=== PATIENT | female | born 1985 | race Caucasian/White ===

== ENCOUNTER 2024-09-09 19:59 | Observation (INO) | payer MEDICARE, OTHER ==
[2024-09-09 20:06] LABS: Glucose,Whole Blood 237 mg/dL (70-110)
--- NOTE | 2024-09-09 20:21 | ED ---
General Adult HPI - General Chief complaint: Chest Pain Stated complaint: Chest pain Time Seen by Provider: 09/09/24 20:02 Source: EMS Mode of arrival: EMS Limitations: physical limitation - History of Present Illness Initial comments: Patient is a 39-year-old female past medical history of diabetes, prior PE, bilateral BKA, polysubstance abuse, presenting today for multiple complaints chief of which is chest pain. Patient was recently released from shelter where she had been for 4 months for possession of heroin. She was checking into [facility] facility when she got experiencing left-sided pressure-like chest pain that radiated to her left shoulder blade. Denies difficulty in breathing. No history of CAD or CVA however patient's father had a heart attack at the age of 56. Patient denies associated nausea, vomiting, diaphoresis or shortness of breath. No recent fevers or chills. Endorses associated pressure-like headache rated a 7 out of 10. No slurred speech, focal numbness or weakness though does endorse tingling in her hands. Patient was given 324 mg of aspirin prior to arrival without relief. Patient states she was previously on Xarelto. Currently denies hemoptysis, lower extremity swelling. No history malignancy. Is not on hormone replacement therapy., Does not smoke cigarettes. Also endorses dysuria and urinary frequency. Denies hematuria. Pt also endorses SI. Denies plan. Prior attempt via OD last November. Denies HI. Denies auditory/visual hallucinations. Has been off of medications x 4 months. - Related Data Allergies Allergy/AdvReac Type Severity Reaction Status Date / Time No Known Allergies Allergy Verified 09/09/24 21:17 Review of Systems ROS Statement: Those systems with pertinent positive or pertinent negative responses have been documented in the HPI. ROS Other: All systems not noted in ROS Statement are negative. Past Medical History Past Medical History: Diabetes Mellitus, Pulmonary Embolus (PE) History of Any Multi-Drug Resistant Organisms: None Reported Past Surgical History: Appendectomy Additional Past Surgical History / Comment(s): Bilat below the knee amputations Past Psychological History: Anxiety, Bipolar, Depression, Panic Disorder, PTSD Smoking Status: Former smoker Past Alcohol Use History: Daily Past Drug Use History: Cocaine, Heroin, Methamphetamine General Exam - General Exam Comments Initial Comments: PE: CONSTITUTIONAL: No apparent distress, well appearing SKIN: Warm, dry, no jaundice, hives or petechiae EYES: Pupils are equally round, extraocular movements intact without nystagmus, clear conjunctiva, non-icteric sclera HENT: Normocephalic, atraumatic, moist mucus membranes, oropharynx clear without exudates NECK: , Full range of motion, normal appearance PULMONARY: Clear to auscultation without wheezes, rhonchi, or rales, normal excursion, no accessory muscle use and no stridor CARDIOVASCULAR: Regular rate, rhythm, normal S1 and S2. No appreciated murmurs, rubs or gallops. Strong radial pulses with intact distal perfusion. No lower extremity edema GASTROINTESTINAL: Soft, active bowel sounds throughout, non-tender, non- distended, no palpable masses, no rebound or guarding. No hepatosplenomegaly MUSCULOSKELETAL: Extremities have no gross deformity, no edema, redness, or swelling. Bilateral BKA. NEUROLOGIC:_a/o x 3, GCS 15, normal mentation and speech. Moves all extremities x 4 without motor or sensory deficit, no focal neurologic deficit PSYCHIATRIC:_normal mood and affect, thought process is clear and linear Limitations: physical limitation Course Vital Signs 09/09/24 09/09/24 20:03 22:55 Temperature 98.7 F Pulse Rate 99 112 H Respiratory 18 18 Rate Blood Pressure 127/91 126/90 O2 Sat by Pulse 100 100 Oximetry EKG Findings - EKG Comments: EKG Findings:: Sinus rhythm, rate 99 bpm, intervals within acceptable limits, normal axis, no significant ST ovation's or depressions, no arrhythmia, T wave inversion lead III aVF Medical Decision Making - Medical Decision Making Was pt. sent in by a medical professional or institution (, PA, COLLET MAKING MACHINE OPERATOR, urgent care, hospital, or [facility]...) When possible be specific @ -Patient sent over from [facility] Did you speak to anyone other than the patient for history (EMS, parent, family, police, friend...)? What history was obtained from this source @ -No Did you review nursing and triage notes (agree or disagree)? Why? @ -I reviewed nursing and triage notes Were old charts reviewed (outside hosp., previous admission, EMS record, old EKG, old radiological studies, urgent care reports/EKG's, [facility] records)? Report findings @ -Medical records reviewed no prior records available for review Differential Diagnosis (chest pain, altered mental status, abdominal pain women, abdominal pain men, vaginal bleeding, weakness, fever, dyspnea, syncope, headache, dizziness, GI bleed, back pain, seizure, CVA, palpatations, mental health, musculoskeletal)? @ -Differential Chest Pain: Stable Angina, Unstable Angina, STEMI, NSTEMI Aortic Dissection, pericarditis, pleurisy, chostochondirits, Pneumothorax, Musculoskeletal, Esophageal Spasm GERD, Cholecystitis, Pancreatitis, Zoster, this is not meant to be an all- inclusive list. EKG interpreted by me (3pts min.). @ -As above X-rays interpreted by me (1pt min.). @ -None done CT interpreted by me (1pt min.). @Personally reviewed CT PE study I see no evidence of massive or submassive PE U/S interpreted by me (1pt. min.). @ -None done What testing was considered but not performed or refused? (CT, X-rays, U/S, l abs)? Why? @CT brain was considered however patient had already received CTA chest and therefore CT brain would need to occur 6 to 8 hours afterwards due to contrast ministration, patient has no focal neurologic deficits, she is well-appearing, she is not significantly hypertensive, at this point I have a very low suspicion from SAH and feel it is safe to wait until contrast from CTA is cleared before obtaining CT brain. CT brain ordered for morning to ensure no mass occupying lesion that would cause new headaches What meds were considered but not given or refused? Why? @ -None Did you discuss the management of the patient with other professionals (professionals i.e. , PA, COLLET MAKING MACHINE OPERATOR, lab, RT, psych nurse, social work nurse, junior staff accountant, teacher, enforcement safety officer, caser in)? Give summary @ -No Was smoking cessation discussed for >3mins.? @ -No Was critical care preformed (if so, how long)? @ -No Were there social determinants of health that impacted care today? How? (Homelessness, low income, unemployed, alcoholism, drug addiction, transportation, low edu. Level, literacy, decrease access to med. care, shelter, rehab)? @Recently incarcerated Was there de-escalation of care discussed even if they declined (Discuss DNR or withdrawal of care, Hospice)? @ -No What co-morbidities impacted this encounter? (DM, HTN, Smoking, COPD, CAD, Cancer, CVA, ARF, Chemo, Hep., AIDS, mental health diagnosis, sleep apnea, morbid obesity)? @Diabetes, prior PE, substance abuse Was patient admitted / discharged? Hospital course, mention meds given and route, prescriptions, significant lab abnormalities, going to OR and other pertinent info. @[id number]old female, history of diabetes, polysubstance abuse, recently incarcerated presenting for chest pain. Vital signs stable on arrival. On my assessment she appears older than her stated age but is otherwise well- appearing. Bilateral BKA. Reassuring cardiopulmonary exam. No focal neurologic deficits. EKG shows T wave inversion III and avf. Will obtain CTA due to prior PE and not on anticoagulation, cardiac enzymes, lipase, CBC, CMP, UA-pt incidentally notes dysuruia and frequency. Pain medications ordered. Labs reviewed. Grossly within normal limits. Abnormal values not concerning for acute pathology related to presenting complaint. CT showed no large vessel PE however unable to evaluate for segmental or subsegmental. Patient is not hypoxic, no elevated cardiac enzymes to indicate right heart strain. Will restart patient on her Xarelto. On reassessment pt endorsed improvement of pain. HEART score 4. Will admit for observation. Case discussed with Dr. Martinez who kindly accepted pt for admission . Undiagnosed new problem with uncertain prognosis? @ -No Drug Therapy requiring intensive monitoring for toxicity (Heparin, Nitro, Insulin, Cardizem)? @ -No Were any procedures done? @ -No Diagnosis/symptom? @chest pain Acute, or Chronic, or Acute on Chronic? @ -acute Uncomplicated (without systemic symptoms) or Complicated (systemic symptoms)? @ complicated Side effects of treatment? @ -No Exacerbation, Progression, or Severe Exacerbation? @ -No Poses a threat to life or bodily function? How? (Chest pain, USA, NH, pneumonia, PE, COPD, DKA, ARF, appy, cholecystitis, CVA, Diverticulitis, Homicidal, Suicidal, threat to staff... and all critical care pts) @ possibly - Lab Data Result diagrams: 09/09/24 20:30 09/09/24 20:30 Lab Results 09/09/24 09/09/24 09/09/24 Range/Units 20:04 20:30 20:30 WBC 13.46 H (4.50-10.00) 10*3/uL RBC 4.62 (4.10-5.20) 10*6/uL Hgb 11.8 L (12.0-15.0) g/dL Hct 36.6 L (37.2-46.3) % MCV 79.2 L (80.0-97.0) fL MCH 25.5 L (27.0-32.0) pg MCHC 32.2 (32.0-37.0) g/dL Plt Count 362 (140-440) 10*3/uL MPV 9.9 (9.5-12.2) fL Immature Gran % (Auto) 0.3 % Neutrophils % 67.3 % Lymphocytes % 22.7 % Monocytes % 7.4 % Eosinophils % 1.6 % Basophils % 0.7 % Immature Gran # 0.04 (0.00-0.04) 10*3/uL Neutrophils # 9.06 H (1.80-7.70) 10*3/uL Lymphocytes # 3.05 (0.90-5.00) 10*3/uL Monocytes # 0.99 (0.20-1.00) 10*3/uL Eosinophils # 0.22 (0.04-0.35) 10*3/uL Basophils # 0.10 (0.00-0.10) 10*3/uL PT 10.5 (10.0-12.5) sec INR 0.9 (<1.2) APTT 26.0 (22.0-30.0) sec Sodium (137-145) mmol/L Potassium (3.5-5.1) mmol/L Chloride (98-107) mmol/L Carbon Dioxide (22-30) mmol/L Anion Gap mmol/L BUN (7-17) mg/dL Creatinine (0.52-1.04) mg/dL Est GFR (CKD-EPI)AfAm (>60 ml/min/1.73 sqM) Est GFR (CKD-EPI)NonAf (>60 ml/min/1.73 sqM) Glucose (74-99) mg/dL POC Glucose (mg/dL) 237 H (70-110) mg/dL POC Glu Expediter Clerk ID Thanh Muranda Calcium (8.4-10.2) mg/dL Magnesium (1.6-2.3) mg/dL Total Bilirubin (0.2-1.3) mg/dL AST (14-36) U/L ALT (4-34) U/L Alkaline Phosphatase (38-126) U/L Troponin I (0.000-0.034) ng/mL NT-Pro-B Natriuret Pep pg/mL Total Protein (6.3-8.2) g/dL Albumin (3.5-5.0) g/dL Lipase (23-300) U/L Urine Color Urine Appearance (Clear) Urine pH (5.0-8.0) Ur Specific Ney (1.001-1.035) Urine Protein (Negative) Urine Glucose (UA) (Negative) Urine Ketones (Negative) Urine Blood (Negative) Urine Nitrite (Negative) Urine Bilirubin (Negative) Urine Urobilinogen (<2.0) mg/dL Ur Leukocyte Esterase (Negative) Urine RBC (0-5) /hpf Urine WBC (0-5) /hpf Ur Squamous Epith Cells (0-4) /hpf Urine Bacteria (None) /hpf Urine Mucus (None) /hpf Urine HCG, Qual (Not Detectd) 09/09/24 09/09/24 09/09/24 Range/Units 20:30 20:30 21:17 WBC (4.50-10.00) 10*3/uL RBC (4.10-5.20) 10*6/uL Hgb (12.0-15.0) g/dL Hct (37.2-46.3) % MCV (80.0-97.0) fL MCH (27.0-32.0) pg MCHC (32.0-37.0) g/dL Plt Count (140-440) 10*3/uL MPV (9.5-12.2) fL Immature Gran % (Auto) % Neutrophils % % Lymphocytes % % Monocytes % % Eosinophils % % Basophils % % Immature Gran # (0.00-0.04) 10*3/uL Neutrophils # (1.80-7.70) 10*3/uL Lymphocytes # (0.90-5.00) 10*3/uL Monocytes # (0.20-1.00) 10*3/uL Eosinophils # (0.04-0.35) 10*3/uL Basophils # (0.00-0.10) 10*3/uL PT (10.0-12.5) sec INR (<1.2) APTT (22.0-30.0) sec Sodium 136 L (137-145) mmol/L Potassium 4.4 (3.5-5.1) mmol/L Chloride 101 (98-107) mmol/L Carbon Dioxide 23 (22-30) mmol/L Anion Gap 12 mmol/L BUN 18 H (7-17) mg/dL Creatinine 0.67 (0.52-1.04) mg/dL Est GFR (CKD-EPI)AfAm >90 (>60 ml/min/1.73 sqM) Est GFR (CKD-EPI)NonAf >90 (>60 ml/min/1.73 sqM) Glucose 216 H (74-99) mg/dL POC Glucose (mg/dL) (70-110) mg/dL POC Glu Expediter Clerk ID Calcium 9.7 (8.4-10.2) mg/dL Magnesium 2.0 (1.6-2.3) mg/dL Total Bilirubin 0.2 (0.2-1.3) mg/dL AST 20 (14-36) U/L ALT 12 (4-34) U/L Alkaline Phosphatase 84 (38-126) U/L Troponin I <0.012 (0.000-0.034) ng/mL NT-Pro-B Natriuret Pep <20 pg/mL Total Protein 7.4 (6.3-8.2) g/dL Albumin 4.1 (3.5-5.0) g/dL Lipase 140 (23-300) U/L Urine Color Colorless Urine Appearance Cloudy H (Clear) Urine pH 5.5 (5.0-8.0) Ur Specific Ney 1.022 (1.001-1.035) Urine Protein Negative (Negative) Urine Glucose (UA) Negative (Negative) Urine Ketones Negative (Negative) Urine Blood Negative (Negative) Urine Nitrite Negative (Negative) Urine Bilirubin Negative (Negative) Urine Urobilinogen <2.0 (<2.0) mg/dL Ur Leukocyte Esterase Large H (Negative) Urine RBC 48 H (0-5) /hpf Urine WBC 102 H (0-5) /hpf Ur Squamous Epith Cells 2 (0-4) /hpf Urine Bacteria Rare H (None) /hpf Urine Mucus Rare H (None) /hpf Urine HCG, Qual (Not Detectd) 09/09/24 Range/Units 21:17 WBC (4.50-10.00) 10*3/uL RBC (4.10-5.20) 10*6/uL Hgb (12.0-15.0) g/dL Hct (37.2-46.3) % MCV (80.0-97.0) fL MCH (27.0-32.0) pg MCHC (32.0-37.0) g/dL Plt Count (140-440) 10*3/uL MPV (9.5-12.2) fL Immature Gran % (Auto) % Neutrophils % % Lymphocytes % % Monocytes % % Eosinophils % % Basophils % % Immature Gran # (0.00-0.04) 10*3/uL Neutrophils # (1.80-7.70) 10*3/uL Lymphocytes # (0.90-5.00) 10*3/uL Monocytes # (0.20-1.00) 10*3/uL Eosinophils # (0.04-0.35) 10*3/uL Basophils # (0.00-0.10) 10*3/uL PT (10.0-12.5) sec INR (<1.2) APTT (22.0-30.0) sec Sodium (137-145) mmol/L Potassium (3.5-5.1) mmol/L Chloride (98-107) mmol/L Carbon Dioxide (22-30) mmol/L Anion Gap mmol/L BUN (7-17) mg/dL Creatinine (0.52-1.04) mg/dL Est GFR (CKD-EPI)AfAm (>60 ml/min/1.73 sqM) Est GFR (CKD-EPI)NonAf (>60 ml/min/1.73 sqM) Glucose (74-99) mg/dL POC Glucose (mg/dL) (70-110) mg/dL POC Glu Expediter Clerk ID Calcium (8.4-10.2) mg/dL Magnesium (1.6-2.3) mg/dL Total Bilirubin (0.2-1.3) mg/dL AST (14-36) U/L ALT (4-34) U/L Alkaline Phosphatase (38-126) U/L Troponin I (0.000-0.034) ng/mL NT-Pro-B Natriuret Pep pg/mL Total Protein (6.3-8.2) g/dL Albumin (3.5-5.0) g/dL Lipase (23-300) U/L Urine Color Urine Appearance (Clear) Urine pH (5.0-8.0) Ur Specific Ney (1.001-1.035) Urine Protein (Negative) Urine Glucose (UA) (Negative) Urine Ketones (Negative) Urine Blood (Negative) Urine Nitrite (Negative) Urine Bilirubin (Negative) Urine Urobilinogen (<2.0) mg/dL Ur Leukocyte Esterase (Negative) Urine RBC (0-5) /hpf Urine WBC (0-5) /hpf Ur Squamous Epith Cells (0-4) /hpf Urine Bacteria (None) /hpf Urine Mucus (None) /hpf Urine HCG, Qual Not Detected (Not Detectd) Disposition Clinical Impression: Chest pain, Headache Disposition: ADMITTED IP TO THIS [facility] Condition: Stable
[2024-09-09 20:34] LABS: Basophils # (A) 0.10 10*3/uL (0.00-0.10); Basophils % (A) 0.7 %; Eosinophils # (A) 0.22 10*3/uL (0.04-0.35); Eosinophils % (A) 1.6 %; HCT 36.6 % (37.2-46.3); HGB 11.8 g/dL (12.0-15.0); Lymphocytes # (A) 3.05 10*3/uL (0.90-5.00); Lymphocytes % (A) 22.7 %; MCH 25.5 pg (27.0-32.0); MCHC 32.2 g/dL (32.0-37.0); MCV 79.2 fL (80.0-97.0); Monocytes # (A) 0.99 10*3/uL (0.20-1.00); Monocytes % (A) 7.4 %; Neutrophils # (A) 9.06 10*3/uL (1.80-7.70); Neutrophils % (A) 67.3 %; Platelet Count 362 10*3/uL (140-440); RBC 4.62 10*6/uL (4.10-5.20); RDW 21.8 % (11.5-14.5); WBC 13.46 10*3/uL (4.50-10.00)
[2024-09-09 20:46] LABS: ALT 12 U/L (4-34); AST 20 U/L (14-36); African American GFR (CKD) >90 (>60 ml/min/1.73 sqM); Albumin 4.1 g/dL (3.5-5.0); Alkaline Phosphatase 84 U/L (38-126); Anion Gap 12 mmol/L; Blood Urea Nitrogen 18 mg/dL (7-17); Calcium 9.7 mg/dL (8.4-10.2); Carbon Dioxide 23 mmol/L (22-30); Chloride 101 mmol/L (98-107); Glucose 216 mg/dL (74-99); Lipase 140 U/L (23-300); Magnesium 2.0 mg/dL (1.6-2.3); Non-African American GFR(CKD) >90 (>60 ml/min/1.73 sqM); Potassium 4.4 mmol/L (3.5-5.1); Sodium 136 mmol/L (137-145); Total Protein 7.4 g/dL (6.3-8.2)
[2024-09-09 20:55] LABS: NT-Pro-B-Type Natriuretic Pept <20 pg/mL
[2024-09-09 20:56] LABS: INR 0.9 (<1.2); Partial Thromboplastin Time 26.0 sec (22.0-30.0); Prothrombin Time 10.5 sec (10.0-12.5)
[2024-09-09] MEDS: ASPIRIN 81 MG PO STA (21:17)
[2024-09-09] MEDS: SODIUM CHLORIDE 0.9% 1,000 ML IV STA (21:20)
[2024-09-09] MEDS: ACETAMINOPHEN TAB 500 MG TAB PO STA (21:28)
[2024-09-09 21:29] LABS: Bacteria,Urine Rare /hpf; Bilirubin,Urine Negative (Negative); Blood,Urine Negative (Negative); Color,Urine Colorless; Glucose,Urine (UA) Negative (Negative); Ketones,Urine Negative (Negative); Leukocyte Esterase,Urine Large (Negative); Mucus,Urine Rare /hpf; Nitrite,Urine Negative (Negative); PH, Urine 5.5 (5.0-8.0); Protein,Urine Negative (Negative); RBC,Urine 48 /hpf (0-5); Specific Gravity,Urine 1.022 (1.001-1.035); Squamous Epithelial Cell,Urine 2 /hpf (0-4); Urobilinogen,Urine <2.0 mg/dL (<2.0); WBC,Urine 102 /hpf (0-5)
[2024-09-09] MEDS: MORPHINE SULFATE 4 MG/ML SYRINGE IVP STA (21:29)
[2024-09-09] MEDS: ONDANSETRON 4 MG/2 ML VIAL IVP STA (21:29)
[2024-09-09] MEDS: KETOROLAC 15 MG/ML 1 ML VIAL IVP STA (21:29)
--- NOTE | 2024-09-09 21:32 | CT ---
EXAMINATION TYPE: CT chest angio for PE DATE OF EXAM: 09/09/2024 9:12 PM COMPARISON: None CLINICAL INDICATION: Female, 39 years old with history of CP, prior PE; CHEST PAIN, PRIOR PE TECHNIQUE/CONTRAST: CTA scan of the thorax is performed with IV Contrast, patient injected with 100ML mL of Isovue 370, M IP images are created and reviewed these are created on a separate workstation.. CT DLP: 811.9 mGycm, Automated exposure control for dose reduction was used. FINDINGS: Lungs/Pleura: No evidence of focal consolidation, pleural effusion or pneumothorax. Airway: Large airways are patent. Heart: Size within normal limits. No significant coronary artery calcifications. Vasculature: Limited evaluation due to bolus timing, no evidence for central pulmonary embolus. The lobar, segmental and subsegmental branches are limited due to bolus timing. The pulmonary artery is o f normal size. Mediastinum: No gross evidence of adenopathy. Musculoskeletal: No acute osseous abnormalities Soft Tissues/lymph nodes: Unremarkable. Lower neck: No significant findings. Upper Abdomen: No significant findings. IMPRESSION: 1. No evidence of central pulmonary embolism. Limited evaluation of the segmental and subsegmental br anches. 2. No acute process. [facility], , 09/09/2024 9:30 PM
[2024-09-09] MEDS ORDERED: ONDANSETRON 4 MG/2 ML VIAL IVP PRN (22:22)
[2024-09-09] MEDS ORDERED: NALOXONE 0.4 MG/ML 1 ML VIAL IV PRN (22:22)
[2024-09-09] MEDS ORDERED: ACETAMINOPHEN TAB 325 MG TAB PO PRN (22:22)
[2024-09-10] MEDS: MORPHINE SULFATE 4 MG/ML SYRINGE IV PRN (02:51)
--- NOTE | 2024-09-10 07:15 | CT ---
EXAMINATION TYPE: CT brain wo con DATE OF EXAM: 09/10/2024 6:08 AM COMPARISON: None. CLINICAL INDICATION: Female, 39 years old with history of new onset headache, TECHNIQUE: Brain: Axial CT images of the brain were obtained with coronal and sagittal reformats created and rev iewed. Contrast used: None. Oral contrast used: None. CT DLP: 1215 mGycm, Automated exposure control for dose reduction was used. FINDINGS: Brain: Extra-axial spaces: No abnormal extra-axial fluid collections. Ventricular system: Within normal limits Cerebral parenchyma: No acute intraparenchymal hemorrhage or mass effect. The dorantes-white junction is well differentiated. Cerebellum: Unremarkable. Mass effect: No evidence of midline shift. Intracranial vasculature: unremarkable Soft tissues: Normal. Calvarium/osseous structures: No depressed skull fracture. Paranasal sinuses and mastoid air cells: Mild scattered paranasal sinus disease. Visualized orbits: Orbital contents are intact. IMPRESSION: No acute intracranial process. [facility], , 09/10/2024 7:13 AM
[2024-09-10] MEDS: HYDROcodone/APAP 5-325MG 1 EACH TAB PO PRN (07:41)
[2024-09-10] MEDS: FAMOTIDINE 20 MG TAB PO SCH (07:42)
[2024-09-10] MEDS ORDERED: CAFFEINE CITRATE 60 MG/3 ML VIAL IV PRN (08:25)
[2024-09-10] MEDS ORDERED: REGADENOSON 0.4 MG/5 ML SYRINGE IV PRN (08:25)
[2024-09-10] MEDS ORDERED: AMINOPHYLLINE 500 MG/20 ML VIAL IV PRN (08:25)
[2024-09-10] MEDS: RIVAROXABAN 15 MG TAB PO SCH (11:48)
--- NOTE | 2024-09-10 11:58 | CA ---
Lexiscan Nuclear Stress Test Report Name: Dede Priest Exam Date: 09/10/2024 10:38 Exam Location: [facility] Ht (in): 69 Wt (lb): 200 BSA: 2.07 Ordering Phys: Tory Blanton Referring Phys: TORY BLANTON,, Technologist: MARTINA,, Age: 39 Gender: F : 1985 Procedure CPT: Indications: Reflex order-Stress test ICD-10 Codes: Patient History: Chest pain, Diabetes and family history of heart disease. Medications: SEE CHART,,,,, Meds past 24 hrs: Pretest Chest Pain: STRESS TEST Lexiscan Protocol Exercise Duration (min:sec): 02:[address] Depressions (mm): Angina Score: Espinal Score: Resting HR (bpm): 80 Peak HR (bpm): 111 Resting BP (mmHg): 128 / 65 Peak BP (mmHg): 109 / 63 MPHR: 182 Target HR: 155 % MPHR: 61 METS: 1.0 Total Dose: Peak Dose: Atropine: Double Product: 92176 BP Response: Stress Termination: INFUSION COMPLETE Stress Symptoms: NO SYMPTOMS Stress Summary: ECG ANALYSIS Resting ECG: Stress ECG: CONCLUSIONS Nondiagnostic stress test Dr. Navneet Leigh MD (Electronically Signed) Final Date: 10 September 2024 11:58
--- NOTE | 2024-09-10 12:13 | NM ---
EXAMINATION TYPE: NM stress lexiscan cardiolite DATE OF EXAM: 09/10/2024 COMPARISON: NONE CLINICAL INDICATION: Female, 39 years old with history of chest pain TECHNIQUE: After the intravenous administration of 10.3 mCi Tc 99m Sestamibi - Cardiolite resting SP ECT images acquired 60 minutes post injection. The patient received 0.4mg Lexiscan, 25.3 mCi Tc 99m Sestamibi - Stress images obtained [address] injection FINDINGS: Review of stress and rest SPECT images demonstrates a small fixed perfusion defect involving the mid anterior wall. Otherwise, no distinct perfusion abnormality is seen. Gated analysis shows normal wal l motion with an estimated left ventricular ejection fraction of 52 %. Though the overall squeeze nicolas ears visually normal. TID calculated upper limits of normal at 1.13. IMPRESSION: 1. A small fixed perfusion defect involving the mid anterior wall is favored to represent attenuation artifact but may also be seen with old infarct. Clinically correlate. 2. No scintigraphic evidence for inducible ischemia. 3. While the LVEF is calculated borderline at 52%, visually, it appears normal. [facility], , 09/10/2024 12:11 PM
--- NOTE | 2024-09-10 12:17 | P.CRDCN ---
History of Present Illness History of present illness: HISTORY OF PRESENT ILLNESS: This is a 39-year-old female with a past medical history significant for diabetes, pulmonary embolism, bilateral BKA, former nicotine dependence, and heroin use. Patient does not follow with a budget technician. We have been asked to see the patient in consultation for chest pain. Patient examined at the bedside. Patient states she was just [facility] from [facility] after serving 4 months. She states that she went to check herself into [facility] for rehab when she started experiencing chest discomfort. She states the pain was in the middle of her chest and radiated into her left arm. She reports it felt like an elephant sitting on her chest. She also reports having a headache. She is a former cigarette smoker. She does report a history of pulmonary embolism and usually is on Xarelto. However she states while she was in [facility] she was not receiving Xarelto. She does have a history of bilateral BKA which she states is secondary to diabetes which she has had since the age of 19. DIAGNOSTICS: - EKG reveals sinus mechanism with Q waves anteriorly and T wave inversions in lead III and aVF. - Laboratory data: Troponin negative x 3 - Current home cardiac medications include none - No previous echocardiogram, stress test, or cardiac catheterization available in EMR for review REVIEW OF SYSTEMS: At the time of my exam: CONSTITUTIONAL: Denies fever or chills. HEENT: Denies blurred vision, vision changes, or eye pain. Denies hemoptysis CARDIOVASCULAR: Denies chest pain. Denies orthopnea. Denies PND. Denies palpitations RESPIRATORY: Denies shortness of breath. GASTROINTESTINAL: Denies abdominal pain. Denies nausea or vomiting. HEMATOLOGIC: Denies bleeding disorders. GENITOURINARY: Denies any blood in urine. SKIN: Denies pruitis. Denies rash. PHYSICAL EXAM: VITAL SIGNS: Reviewed. GENERAL: Well-developed in no acute distress. HEENT: Head is normocephalic. Pupils are equal, round. Sclerae anicteric. Mucous membranes of the mouth are moist. Neck supple. No JVD or thyromegaly LUNGS: Respirations even and unlabored. Lungs essentially clear to auscultation bilaterally. HEART: Regular rate and rhythm. S1 and S2 heard. ABDOMEN: Soft. Nondistended. Nontender. EXTREMITIES: Normal range of motion. No clubbing or cyanosis. Peripheral pu lses intact. Bilateral BKA NEUROLOGIC: Awake and alert. Oriented x 3. ASSESSMENT: Chest pain History of pulmonary embolism Diabetes History of bilateral BKA Former nicotine dependence History of heroin use PLAN: An acute coronary event has been ruled out Obtain 2D echo to assess cardiac structure and function Patient has been resumed on Xarelto Add aspirin and Lipitor Patient to undergo Lexiscan stress test. If negative she may be discharged home from a cardiac standpoint Nurse practitioner note has been reviewed by physician. Signing provider agrees with the documented findings, assessment, and plan of care documented by CARGO BRACER as a scribe. Past Medical History Past Medical History: Diabetes Mellitus, Pulmonary Embolus (PE) History of Any Multi-Drug Resistant Organisms: None Reported Past Surgical History: Appendectomy Additional Past Surgical History / Comment(s): Bilat below the knee amputations Past Psychological History: Anxiety, Bipolar, Depression, Panic Disorder, PTSD Smoking Status: Former smoker Past Alcohol Use History: Daily Past Drug Use History: Cocaine, Heroin, Methamphetamine Medications and Allergies Home Medications Medication Instructions Recorded Confirmed Type Aspirin 325 mg PO ONCE 09/10/24 09/10/24 History DULoxetine HCL [Cymbalta] 30 mg PO HS 09/10/24 09/10/24 History Nortriptyline [Pamelor] 25 mg PO HS 09/10/24 09/10/24 History Allergies Allergy/AdvReac Type Severity Reaction Status Date / Time No Known Allergies Allergy Verified 09/10/24 07:18 Physical Exam Vitals: Vital Signs Temp Pulse Pulse Resp BP BP Pulse Ox 09/10/24 07:00 98.3 F 77 17 110/69 99 09/10/24 06:24 80 17 105/68 98 09/09/24 22:55 112 H 18 126/90 100 09/09/24 20:03 98.7 F 99 18 127/91 100 Intake and Output 09/09/24 09/10/24 09/10/24 22:59 06:59 14:59 Other: Weight 90.718 kg Results 09/09/24 20:30 09/09/24 20:30 Cardiac Enzymes 09/09/24 09/09/24 09/09/24 Range/Units 20:30 20:30 23:42 AST 20 (14-36) U/L Troponin I <0.012 <0.012 (0.000-0.034) ng/mL 09/10/24 Range/Units 03:06 AST (14-36) U/L Troponin I <0.012 (0.000-0.034) ng/mL Coagulation 09/09/24 Range/Units 20:30 PT 10.5 (10.0-12.5) sec APTT 26.0 (22.0-30.0) sec CBC 09/09/24 Range/Units 20:30 WBC 13.46 H (4.50-10.00) 10*3/uL RBC 4.62 (4.10-5.20) 10*6/uL Hgb 11.8 L (12.0-15.0) g/dL Hct 36.6 L (37.2-46.3) % Plt Count 362 (140-440) 10*3/uL Comprehensive Metabolic Panel 09/09/24 Range/Units 20:30 Sodium 136 L (137-145) mmol/L Potassium 4.4 (3.5-5.1) mmol/L Chloride 101 (98-107) mmol/L Carbon Dioxide 23 (22-30) mmol/L BUN 18 H (7-17) mg/dL Creatinine 0.67 (0.52-1.04) mg/dL Glucose 216 H (74-99) mg/dL Calcium 9.7 (8.4-10.2) mg/dL AST 20 (14-36) U/L ALT 12 (4-34) U/L Alkaline Phosphatase 84 (38-126) U/L Total Protein 7.4 (6.3-8.2) g/dL Albumin 4.1 (3.5-5.0) g/dL Current Medications Generic Name Dose Route Start Last Admin Trade Name Freq PRN Reason Stop Dose Admin Acetaminophen 650 mg 09/09/24 22:22 Acetaminophen Tab 325 Mg Tab PO Q6HR PRN Mild Pain or Fever > 100.5 Hydrocodone Bitart/Acetaminophen 1 each 09/09/24 22:22 09/10/24 07:41 Hydrocodone/Apap 5-325mg 1 Each Tab PO 1 each Q6HR PRN Administration Moderate Pain (Scale 4 to 6) Famotidine 20 mg 09/10/24 09:00 09/10/24 07:42 Famotidine 20 Mg Tab PO 20 mg BID SHEEBA Administration Morphine Sulfate 4 mg 09/09/24 22:22 09/10/24 02:51 Morphine Sulfate 4 Mg/Ml Syringe IV 4 mg Q4HR PRN Administration Severe Pain (Scale 7 to 10) Naloxone HCl 0.2 mg 09/09/24 22:22 Naloxone 0.4 Mg/Ml 1 Ml Vial IV Q2M PRN Opioid Reversal Ondansetron HCl 4 mg 09/09/24 22:22 Ondansetron 4 Mg/2 Ml Vial IVP Q8HR PRN Nausea And Vomiting Rivaroxaban 15 mg 09/10/24 07:30 Rivaroxaban 15 Mg Tab PO BID-W/MEALS [facility] Protocol Intake and Output 09/09/24 09/10/24 09/10/24 22:59 06:59 14:59 Other: Weight 90.718 kg 09/09/24 20:30 09/09/24 20:30
[2024-09-10 12:38] LABS: Glucose,Whole Blood 130 mg/dL (70-110)
--- NOTE | 2024-09-10 14:15 | P.CN ---
Psychiatric Consult - . Consult date: 09/10/24 Consult:: 09/10/24 14:07 IDENTIFYING DATA: This patient is a 39-year-old female, recently released from [facility], homeless REASON FOR REFERRAL: Psychiatry was consulted for SI HISTORY OF PRESENT ILLNESS: The patient presented to the hospital with chief complaint of chest pain with cardiology consulted with stress test ordered. Patient states she was released from [facility] yesterday where she spent 4 months due to possession of heroin. She states while there she was off of her medications for the past 4 months including gabapentin 800 mg total, Seroquel 100 mg at bedtime, Lexapro 10 mg daily, hydroxyzine 100 mg twice daily. She notes since being off of her medications she has developed suicidal ideations, no plan or intent. She states the biggest stressor includes her missing her son who is currently staying with his father. She reports being homeless since January however she plans to live with her child and his father. She reports being sober from heroin while in correction however she does not want to go to rehab given the sobriety. She reports sleep difficulties, her appetite, low energy, anhedonia. She also reports anxiety that appears generalized in nature along with racing thoughts and feeling on edge. At this time patient denies any homicidal ideations, intent or plan. Patient denies any auditory, visual hallucinations and denies any paranoia or delusions. Patients admits to using no substances since being in correction. PAST PSYCHIATRIC HISTORY: Patient has a history of depression, anxiety, bipolar, PTSD. Patient denies being on any psychiatric medications. Patient reports 15 inpatient hospitalizations, last in November 2023. She states seeing psychiatrist Dr. Ramos at [facility] in [facility]. Patient reports 5 suicide attempts, most recent being November 2023. PAST MEDICAL HISTORY: Diabetes, PE. ALLERGIES: as per EMR. CHEMICAL DEPENDENCY HISTORY: as per HPI. FAMILY PSYCHIATRIC/SUBSTANCE USE HISTORY: Patient reports strong substance use on both sides of the family, states that 2 of her uncles completed suicide. SOCIAL HISTORY: Patient is from [facility]. She has 1 son, is single and homeless currently. She completed high school and is on disability. MENTAL STATUS EXAM: General Appearance: Patient appears to be stated age is alert, pleasant, and cooperative. Patient appears to have fair hygiene and grooming wearing hospital gown with fair eye contact. Behavior: Patient is calmly sitting in bed without any agitated behavior. Speech: Patient's speech is fluent and nonpressured. Mood/Affect: Patient reports their mood is "depressed", affect is congruent Suicidality/Homicidality: Patient denies having any homicidal ideation intent or plan. She reports suicidal ideations, no plan or intent Perceptions: Patient denies any visual hallucinations and denies any auditory hallucinations Though content/process: There is no evidence of any delusional thought content and thought process is linear and goal-directed. Memory and concentration: AOX3, grossly intact for the purposes of this session. Can spell "WORLD" backwards Judgment and insight: Poor IMPRESSIONS: Major depressive disorder, recurrent, moderate Rule out bipolar disorder Generalized anxiety disorder Opioid use disorder, in early remission Stimulant use disorder, in early remission PLAN: -At this time patient DOES NOT meet criteria for inpatient psychiatric admission. She does not wish to go to rehab upon discharge. -Would recommend the following medication changes/additions: Start Seroquel 100 mg at bedtime for sleep/mood stabilization, Lexapro 10 milligrams daily for depression/anxiety, hydroxyzine 50 mg twice daily for anxiety, gabapentin 200 mg 3 times daily. Patient was encouraged to follow-up with Dr. Ramos for further medication adjustments -Can discontinue 1:1 sitter at this time as patient is not currently an imminent threat to themselves -Media Clerk spoke with patient about substance abuse and the harmful effects on medical and mental health, patient verbally understood and agreed. -Communicated plan to patient's nurse -Psychiatry will sign off at this time -Please contact with any questions.
[2024-09-10] MEDS: GABAPENTIN 100 MG CAP PO SCH (17:07)
[2024-09-10] MEDS: ESCITALOPRAM 10 MG TAB PO SCH (17:07)
[2024-09-10 17:29] LABS: Glucose,Whole Blood 153 mg/dL (70-110)
[2024-09-10 19:48] LABS: Glucose,Whole Blood 220 mg/dL (70-110)
[2024-09-10] MEDS: QUEtiapine 100 MG TAB PO SCH (20:09)
[2024-09-10] MEDS: ATORVASTATIN 40 MG TAB PO SCH (20:09)
[2024-09-10] MEDS: hydrOXYzine HCL 25 MG TAB PO SCH (20:09)
[2024-09-11 05:45] LABS: Glucose,Whole Blood 135 mg/dL (70-110)
--- NOTE | 2024-09-11 08:43 | CA ---
Transthoracic Echo Report Name: Dede Priest Age: 39 Gender: F : 1985 Exam Date: 09/10/2024 13:04 Exam Location: [facility] Ht (in): 69 Wt (lb): 200 Ordering Physician: Tory Blanton Attending/Referring Phys: [id number], Franny Senior Javascript Engineer Melissa Snow [facility] Procedure CPT: Indications: CP Cardiac Hx: Technical Quality: Fair Contrast 1: Total Dose (mL): Contrast 2: Total Dose (mL): MEASUREMENTS (Male / Female) Normal Values 2D ECHO LV Diastolic Diameter PLAX 4.2 cm 4.2 - 5.9 / 3.9 - 5.3 cm LV Systolic Diameter PLAX 3.3 cm IVS Diastolic Thickness 1.1 cm 0.6 - 1.0 / 0.6 - 0.9 cm LVPW Diastolic Thickness 1.4 cm 0.6 - 1.0 / 0.6 - 0.9 cm LV Relative Wall Thickness 0.6 RV Internal Dim ED PLAX 2.3 cm LVOT Diameter 2.1 cm LA Systolic Diameter LX 3.6 cm 3.0 - 4.0 / 2.7 - 3.8 cm LV Diastolic Volume MOD BP 90.8 cm??? 67 - 155 / 56 - 104 cm??? LV Systolic Volume MOD BP 29.5 cm??? 22 - 58 / 19 - 49 cm??? LV Ejection Fraction MOD BP 67.6 % >= 55 % LV Cardiac Index MOD BP 2396.9 cm???/min???m??? LV Diastolic Volume MOD 4C 81.4 cm??? LV Systolic Volume MOD 4C 22.3 cm??? LV Ejection Fraction MOD 4C 72.6 % LV Cardiac Index MOD 4C 2306.4 cm???/min???m??? LV Diastolic Length 4C 8.6 cm LV Systolic Length 4C 6.4 cm LV Diastolic Volume MOD 2C 95.2 cm??? LV Systolic Volume MOD 2C 38.7 cm??? LV Ejection Fraction MOD 2C 59.3 % LV Cardiac Index MOD 2C 2205.2 cm???/min???m??? LV Diastolic Length 2C 8.0 cm LV Systolic Length 2C 6.5 cm Ascending Aorta Diameter 2.8 cm M-MODE Aortic Root Diameter MM 3.1 cm AV Cusp Separation MM 1.6 cm DOPPLER AV Peak Velocity 127.4 cm/s AV Peak Gradient 6.5 mmHg LVOT Peak Velocity 94.8 cm/s LVOT Peak Gradient 3.6 mmHg AV Area Cont Eq pk 2.6 cm??? Mitral E Point Velocity 50.4 cm/s Mitral A Point Velocity 52.3 cm/s Mitral E to A Ratio 1.0 MV Deceleration Time 158.5 ms MV E' Velocity 7.9 cm/s Mitral E to MV E' Ratio 6.4 FINDINGS Left Ventricle Left ventricular ejection fraction is estimated at 60-65 %. Mildly increased septal wall thickness. Moderately increased posterior wall thickness. Left ventricular cavity size normal. there is wall motion abnormality in the mid inferoseptal wall. Right Ventricle Normal right ventricular size and function. Right Atrium Normal right atrial size. No right atrial thrombus or mass seen. Left Atrium Normal left atrial size. No left atrial thrombus or mass present. Mitral Valve Structurally normal mitral valve. No mitral stenosis. No mitral regurgitation. Aortic Valve Trileaflet aortic valve. No aortic stenosis. No aortic regurgitation. Tricuspid Valve Structurally normal tricuspid valve. No tricuspid stenosis. No tricuspid regurgitation. Pulmonic Valve Pulmonic valve not well visualized. No pulmonic regurgitation. Pericardium Minimal pericardial effusion .no pleural effusion. Aorta Normal size aortic root and proximal ascending aorta. CONCLUSIONS Normal biventricular systolic function No significant valvular abnormalities Previewed by: Dr. Navneet Leigh MD (Electronically Signed) Final Date: 11 September 2024 08:43
[2024-09-11] MEDS: ASPIRIN 81 MG PO SCH (09:31)
[2024-09-11 12:09] LABS: Glucose,Whole Blood 128 mg/dL (70-110)
[2024-09-11 17:10] LABS: Glucose,Whole Blood 178 mg/dL (70-110)
[2024-09-11 19:35] VITALS: BP 125/67; PULSE 107; RESP 17; TEMP 99
[2024-09-11 20:31] LABS: Glucose,Whole Blood 219 mg/dL (70-110)
--- NOTE | 2024-09-12 00:57 | PN ---
PROGRESS NOTE DATE OF SERVICE: 09/10/2024 OBJECTIVE: CARDIOVASCULAR: S1, S2. LUNGS: Clear. GI: Soft. EXTREMITIES: Bilateral knee amputation. . Headache resolved. . Dyslipidemia. Below-knee amputation wound positive for strep group B. continue current treatments. Prognosis is guarded. Discharge home in stable. MMODL / IJN: [id number] /
== END 2024-09-11 21:45 | disposition home or self-care (01) ==
LOC: EC 19:59 → 1SOBS 22:22 → 5NMEDONC 22:57 → 6NMEDSUR 23:11
PROVIDERS: ADMIT Family Medicine; ATTEND Family Medicine
DX: R07.89 Other chest pain (principal); F33.1 Major depressive disorder, recurrent, moderate; E11.9 Type 2 diabetes mellitus without complications; F41.1 Generalized anxiety disorder; E78.5 Hyperlipidemia, unspecified; T43.596A Underdosing of other antipsychotics and neuroleptics, initial encounter; T43.226A Underdosing of selective serotonin reuptake inhibitors, initial encounter; T45.516A Underdosing of anticoagulants, initial encounter; Z91.138 Patient's unintentional underdosing of medication regimen for other reason; F11.91 Opioid use, unspecified, in remission; F15.91 Other stimulant use, unspecified, in remission; R51.9 Headache, unspecified; R20.2 Paresthesia of skin; R35.0 Frequency of micturition; R30.0 Dysuria; R45.851 Suicidal ideations; Z79.82 Long term (current) use of aspirin; Z79.01 Long term (current) use of anticoagulants; Z79.899 Other long term (current) drug therapy; Z91.51 Personal history of suicidal behavior; Z87.891 Personal history of nicotine dependence; Z89.511 Acquired absence of right leg below knee; Z89.512 Acquired absence of left leg below knee; Z86.711 Personal history of pulmonary embolism; Z59.00 Homelessness unspecified; Z82.49 Family history of ischemic heart disease and other diseases of the circulatory system
CPT/HCPCS: 96361 ×3; 96376; 96374; 96375; 99285; 36415; 93005; 93017; 93306; 83880; 80053; 83690; 83735; 84484 ×2; 85025; 85610; 85730; 81001; 81025; 87086; 70450; 71275; 78452; G0378 ×4; A9500; J2270 ×2; J2405; J2785; J1885; Q9967